=== PATIENT | female | born 1985 ===

== ENCOUNTER 2016-11-01 06:18 | Inpatient (IN) | payer OTHER ==
[2016-11-01 12:37] LABS: Comments Flag Yes; Hematocrit 34 % (35-47); Hemoglobin 10.5 g/dl (12.0-16.0); Mean Corpuscular HGB Conc 31 g/dl (31-36); Mean Corpuscular Hemoglobin 25 pg (27-31); Mean Corpuscular Volume 78 fL (80-97); Mean Platelet Volume 11 um3 (7.4-10.4); Red Cell Distribution Width 17 % (10.5-15); White Blood Count 14.2 10^3/ul (3.5-10.8)
[2016-11-01 12:38] LABS: Add Diff/Slide Review? Slide Review Added
[2016-11-01] MEDS ORDERED: Oxytocin in LR* 20 UNITS/1,000 ML BAG IVPB ONE (15:52)
[2016-11-01] MEDS ORDERED: OBEPIDURAL* 250 ML ONE (20:13)
[2016-11-01] MEDS ORDERED: Famotidine TAB* 20 MG PO PRN (20:35)
[2016-11-01] MEDS ORDERED: Phenylephrine IV* 40 MCG/ML 10 ML SYRINGE IV PUSH PRN ×2 (20:35)
[2016-11-01] MEDS ORDERED: Lactated Ringers 500 ml BAG* 500 ML IV PRN (20:35)
[2016-11-01] MEDS ORDERED: Sodium Citrate/Citric Acid* 15 ML UDC PO PRN (20:35)
[2016-11-01] MEDS ORDERED: OBEPIDURAL* 250 ML EPIDURAL SCH (21:00)
[2016-11-01] MEDS ORDERED: Oxytocin in LR* 20 UNITS/1,000 ML BAG IVPB SCH (23:45)
[2016-11-02] MEDS ORDERED: Sodium Citrate/Citric Acid* 15 ML UDC ONE (02:59)
[2016-11-02] MEDS ORDERED: ceFOXitin 2 GM IVPREMIX* 2 GM/50 ML BAG ONE (02:59)
[2016-11-02] MEDS ORDERED: ceFOXitin 2 GM IVPREMIX* 2 GM/50 ML BAG IVPB ONE (03:01)
[2016-11-02] MEDS ORDERED: Glycerin ADULT SUPP PR PRN (03:03)
[2016-11-02] MEDS ORDERED: Witch Hazel PAD* JAR TOPICAL PRN (03:03)
[2016-11-02] MEDS ORDERED: Dibucaine 1% 28.35 GM TUBE PR PRN (03:03)
[2016-11-02] MEDS ORDERED: RHO D Immune Globulin (HUMAN)* 300 MCG = 1,500 I.U. INJ IM ONE (03:03)
[2016-11-02] MEDS ORDERED: HYDROmorphone* 1 MG/ML 1 ML SYR ONE (03:42)
[2016-11-02] MEDS ORDERED: Ondansetron INJ* 2 MG/ML VIAL ONE (03:46)
[2016-11-02] MEDS ORDERED: Ketorolac INJ* 30 MG/ML 1 ML VIAL ONE (03:46)
[2016-11-02] MEDS ORDERED: Dexamethasone IV* 4 MG/ML 1 ML (4 MG) ONE ×2 (03:46→04:20)
[2016-11-02] MEDS ORDERED: Phenylephrine IV* 40 MCG/ML 10 ML SYRINGE ONE (03:47)
[2016-11-02] MEDS ORDERED: OXYTOCIN* 10 UNITS/ML 1 ML VIAL ONE (04:20)
[2016-11-02] MEDS ORDERED: HYDROmorphone* 1 MG/ML 1 ML SYR IV PRN (04:42)
[2016-11-02] MEDS: oxyCODONE/Acetamin 5/325 MG* TAB PO PRN ×3 (05:42→18:01)
--- NOTE | 2016-11-02 06:54 | OP ---
DATE OF OPERATION: 11/02/16 - ROOM #103 DATE OF : 87 SURGEON: Padmini Farmer MD. CRYPTOGRAPHER: Dr. Cross and Janell Patel CNM. ANESTHESIA: Epidural. PRE-OP DIAGNOSIS: 39 plus 4 weeks' gestation, with arrest of descent and category 2 heart tracing. POST-OP DIAGNOSIS: 39 plus 4 weeks' gestation, with arrest of descent and category 2 heart tracing. OPERATIVE PROCEDURE: Primary low-transverse section. ESTIMATED BLOOD LOSS: 700 cc. URINE OUTPUT: 1000 cc. IV FLUIDS: 1500 cc lactated Ringer's. MATERIALS TO LAB: Cord blood. INDICATIONS: This patient was a 31-year-old 1, para 0, who presented at 39 plus 3 weeks' gestation, about 8 hours after having spontaneous rupture of membranes, which occurred about 27 hours before delivery. The patient entered into active labor spontaneously. She progressed fairly well in labor until she reached about 9 cm at which point she could not get past anterior lip of cervix over several hours. The patient consented to an epidural, which allowed her to rest and the cervix then became fully dilated. The patient then began pushing. During this time, she received some Pitocin to augment her contraction frequency. After a little over 2 hours of pushing, I was consulted as the head was not making further descent and the heart tracing was having some late decelerations. On evaluation, there was significant caput, but the presenting scalp was only at about 0 to +1 station and there was no additional descent with each push. The heart tracing showed moderate variability, but there were fairly persistent late decelerations with each push. Considering the findings, I recommended a primary section for delivery and the patient agreed with this. She was extensively counseled and consent was signed. FINDINGS: Normal appearing uterus, fallopian tubes, and ovaries. Delivery was productive of a 7-pound 13-ounce female with 's of 9 and 9. Time of delivery was 0347. There was thick meconium present on entry into the uterus. COMPLICATIONS: None. DESCRIPTION OF PROCEDURE: The risks, benefits, and alternatives were described to the patient and informed consent was obtained. The patient was taken to the operating room with IV running where epidural anesthesia was induced and found to be adequate. The patient was prepped and draped in the normal sterile fashion in the dorsal supine position with leftward tilt. A Pfannenstiel skin incision was made with a scalpel and this was carried down to the underlying fascia sharply. The fascia was then scored in the midline with the scalpel. The incision was extended using Paez scissors. The rectus muscles were dissected off the rectus fascia using blunt and sharp dissection. The rectus muscles were in the midline bluntly. The peritoneum was also entered bluntly. A bladder blade was placed. A bladder flap was created sharply using Metzenbaum scissors. A low transverse uterine incision was made with the scalpel. This was carried down to the amniotic cavity which was productive of clear fluid. The incision was extended with blunt traction. The head was elevated to the level of the incision without difficulty and delivered through the incision. With fundal pressure, the shoulders and body delivered without difficulty. The infant had excellent tone and cried immediately on delivery. The cord was doubly clamped and cut. The infant was then handed to the awaiting power house engineer. Cord blood was collected. The placenta then delivered with manual extraction. The uterus was then exteriorized and cleared of all clots and debris. The uterine incision was reapproximated using 0 Polysorb in a running-locked fashion. A second layer of imbricating sutures of 0 Polysorb was also placed with good hemostasis. The posterior cul-de-sac was irrigated with saline. The uterus was then returned to the abdomen, and the incision was reinspected and noted to be hemostatic. The peritoneum was closed with 3-0 Polysorb in a running fashion. The subcutaneous layer was reapproximated with interrupted 3- 0 Polysorb stitches. The skin was then closed with 4-0 Monocryl in a subcuticular stitch. Mastisol and Steri-Strips were placed over the incision which was then covered with a sterile bandage. The patient tolerated the procedure well. Sponge, lap, and needle counts were correct x2. [id number]/[facility] #: [id number] [facility] CENTERBill
[2016-11-02] MEDS: Simethicone CHEW TAB* 80 MG PO SCH ×4 (09:20→20:37)
[2016-11-02] MEDS: Docusate CAP* 100 MG PO SCH ×3 (09:20→20:37)
[2016-11-02] MEDS: Ibuprofen TAB* 600 MG PO SCH ×3 (12:00→18:00)
[2016-11-03] MEDS: Ibuprofen TAB* 600 MG PO SCH ×5 (04:33→21:57)
[2016-11-03] MEDS: oxyCODONE/Acetamin 5/325 MG* TAB PO PRN ×4 (04:33→20:55)
[2016-11-03 08:40] LABS: Hematocrit 31 % (35-47); Hemoglobin 10.1 g/dl (12.0-16.0); Mean Corpuscular HGB Conc 32 g/dl (31-36); Mean Corpuscular Hemoglobin 25 pg (27-31); Mean Corpuscular Volume 78 fL (80-97); Mean Platelet Volume 10 um3 (7.4-10.4); Red Blood Count 4.04 10^6/ul (4.0-5.4); Red Cell Distribution Width 17 % (10.5-15); White Blood Count 16.5 10^3/ul (3.5-10.8)
[2016-11-03] MEDS ORDERED: Ferrous Gluconate TAB* 324 MG TAB PO SCH (09:00)
[2016-11-03] MEDS: Docusate CAP* 100 MG PO SCH ×3 (10:30→20:55)
[2016-11-03] MEDS: Simethicone CHEW TAB* 80 MG PO SCH ×4 (10:30→20:55)
--- NOTE | 2016-11-03 18:07 | PTEDU ---
Patient Name: FRANCISCO AVERY BENNIE FRANCISCO selected video: BBOB: Nurturing Your Gorgeous \T\Growing Baby by to view o n 11/03/2016 at 6:06:28 PM [id number]
--- NOTE | 2016-11-03 21:36 | PTEDU ---
Patient Name: FRANCISCO AVERY BENNIE FRANCISCO selected video: Follow Me Mum: The [place] to Successful to view on 11/03/2016 at 9:34:46 PM [id number]
[2016-11-04] MEDS: Ibuprofen TAB* 600 MG PO SCH ×3 (00:10→06:11)
[2016-11-04] MEDS: oxyCODONE/Acetamin 5/325 MG* TAB PO PRN (06:20)
[2016-11-04 07:57] VITALS: BP 129/79
[2016-11-04] MEDS: Simethicone CHEW TAB* 80 MG PO SCH (08:44)
[2016-11-04] MEDS: Docusate CAP* 100 MG PO SCH (08:44)
--- NOTE | 2016-11-04 09:21 | PTEDU ---
Patient Name: FRANCISCO AVERY BENNIE FRANCISCO selected video: Never Ever Shake a Baby to view on 11/04/2016 at 9:20:33 AM [id number]
== END 2016-11-04 12:40 | disposition home or self-care (01) | DRG 766 ==
LOC: MCHOBOUT 06:18 → MCHOB 06:37
PROVIDERS: ADMIT Midwife; ATTEND Midwife
PROC: 10D00Z1 Extraction of Products of Conception, Low, Open Approach (ICD-10-PCS; principal; 2016-11-02 03:20)
DX: O32.4XX0 Maternal care for high head at term, not applicable or unspecified (principal); O77.0 Labor and delivery complicated by meconium in amniotic fluid; O76 Abnormality in fetal heart rate and rhythm complicating labor and delivery; Z3A.39 39 weeks gestation of pregnancy; Z37.0 Single live birth
CPT/HCPCS: 36415; 85025; 85461; 86850; 86870; 86880; 86900; 86901; A9270-GY; J0694; J1100; J1170; J1885; J2405; J2590; J2790